=== PATIENT | female | born 1950 | race Caucasian/White ===

== ENCOUNTER 2016-10-22 13:18 | Inpatient (IN) | payer MEDICARE, OTHER ==
[~2016-10-22] VITALS: Ht 172.7 cm; Wt 127.6 kg
--- NOTE | ~2016-10-22 | HP ---
PATIENT'S NAME: CARMELO PERALTA [facility] AGE: 66 Y [address] ROOM: [place] [address] LOCATION: GPCU ADMIT DATE: 10/23/2016 History & Physical DISCHARGE DATE: FAMILY PHYSICIAN: Jennifer Reynoso MD ATTENDING PHYSICIAN: KACEY CANDELARIO DATE OF SERVICE: HISTORY OF PRESENT ILLNESS: This is a 66-year-old female, who was found to be in a new onset atrial fibrillation with rapid ventricular response while in the preoperative area. She is admitted as an outpatient today to the preoperative area for a planned right total hip replacement with Dr. Ruth due to hip pain. Due to the new diagnosis of AFib, the surgery was canceled and plan was to be evaluated by Cardiology. Due to this new diagnosis, [facility] was consulted to fully evaluate. She currently denies chest pain, shortness of breath, dyspnea on exertion, palpitations, presyncope, syncope, nausea, vomiting, or diarrhea. Her only complaint is of her right-sided hip pain, especially with movement. PAST MEDICAL HISTORY: 1. Hypertension. 2. Diabetes mellitus type 2. 3. Obesity. 4. Nocturnal hypoxemia. 5. COPD. 6. Mixed hyperlipidemia. 7. Lumbar spinal stenosis. 8. Obstructive sleep apnea. 9. Diverticulosis. 10. Depression and anxiety. 11. Stress urinary incontinence. PAST SURGICAL HISTORY: 1. Lumbar L5 as well as S1 diskectomy. 2. Right reverse total shoulder. 3. Left Achilles tendon tear. 4. Herniated disk repair at C6. FAMILY HISTORY: The patient's mother had a history of hypertension as well as arthritis and osteoporosis. Her father had a history of colon cancer, congestive heart failure, hypertension, and arthritis. She had one brother who at the age of 74 due to leukemia and another brother with a history of colon cancer. SOCIAL HISTORY: The patient is a current daily smoker. She smokes 1 pack per day and has done PATIENT'S NAME: CARMELO PERALTA [facility] AGE: 66 Y [address] ROOM: [place] [address] LOCATION: GPCU ADMIT DATE: 10/23/2016 History & Physical DISCHARGE DATE: FAMILY PHYSICIAN: Jennifer Reynoso MD ATTENDING PHYSICIAN: KACEY CANDELARIO for the past 48 years. She denies alcohol or illicit drug use. HOME MEDICATIONS: 1. Tylenol 1300 mg p.o. every 6 hours as needed for pain. 2. Xanax 0.25 mg p.o. twice daily as needed for anxiety. 3. Ascorbic acid 1000 mg p.o. daily. 4. Aspirin 81 mg p.o. 2 times a week on Sunday and Sunday. 5. Lipitor 20 mg p.o. daily in the evening. 6. Celexa 10 mg p.o. daily. 7. Clindamycin 900 mg p.o. one time as needed for dental prophylaxis. 8. Vitamin B12 1000 mcg p.o. daily. 9. Benadryl 50 mg p.o. daily in the evening as needed for sleep. 10. Colace 100 mg 1 to 2 capsules at bedtime as needed for constipation. 11. Pepcid 20 mg p.o. daily as needed for upset stomach. 12. [place] 5/325 mg p.o. 1 tablet every 6 hours as needed for pain. 13. Ibuprofen 800 mg p.o. 3 times daily. 14. Lisinopril/hydrochlorothiazide 10/12.5 mg p.o. daily. 15. Metformin 500 mg p.o. twice daily. 16. Toprol-XL 50 mg p.o. daily. 17. Multivitamin with beta-carotene 1 tablet p.o. daily. MEDICATION ALLERGIES: 1. Hydrocodone causing vomiting. 2. Homatropine causing vomiting. 3. Augmentin causing vomiting. 4. Dilaudid causing anger. 5. Nucynta. REVIEW OF SYSTEMS: A 12-point review of systems evaluated and negative except for those listed in the HPI. PHYSICAL EXAMINATION: VITAL SIGNS: Temperature 98.0, pulse 123, respirations 18, blood pressure 180/120, and O2 saturation 95% on 2 L nasal cannula. The patient weighs 127.6 kg. SKIN: [place], warm, and dry. EYES: Sclerae clear. No xanthelasmas. ENT: Oral mucosa is pink and moist. No jugular venous distention or carotid bruits. CHEST: Respirations are even and unlabored. Lungs are clear to auscultation. She does have dim breath sounds to bilateral lower lobes. HEART: Irregular rate and rhythm. Normal S1, S2. No murmurs, rubs, or gallops. ABDOMEN: Soft and nontender, but obese. PATIENT'S NAME: CARMELO PERALTA [facility] AGE: 66 Y [address] ROOM: [address] [place], [place] [address] [facility] ADMIT DATE: 10/23/2016 History & Physical DISCHARGE DATE: FAMILY PHYSICIAN: Jennifer Reynoos MD ATTENDING PHYSICIAN: KACEY CANDELARIO MUSCULOSKELETAL: Equal muscle strength to upper and lower extremities bilaterally against resistance. EXTREMITIES: Peripheral pulses palpable. No clubbing, cyanosis, or edema. PSYCHIATRIC: Alert and oriented. Mood and affect are appropriate. IMPRESSION AND PLAN: Per Dr. Covarrubias: 1. New onset atrial fibrillation with rapid ventricular response. 2. Right hip pain with planned outpatient right total hip replacement. 3. Hypertension. 4. Diabetes mellitus type 2. 5. Risk factors for coronary artery disease. We will admit her to the progressive care unit and start her on sotalol with daily EKGs every morning to monitor QTc. We will start her on a heparin drip for ACS protocol. She needs to have a coronary artery disease workup with an echocardiogram to fully evaluate ejection fraction as well as look for wall motion or valvular abnormalities, as well as a Lexiscan stress test to fully evaluate myocardial perfusion imaging. We will fully evaluate laboratory levels with cardiac enzymes, TSH, free T4, lipid panel, and A1c. Once again, we will start her on sotalol 80 mg p.o. every 12 hours with the first dose now. We will continue to monitor, evaluate, and treat as appropriate. Thank you for allowing [facility] to interact in the care of this patient. OMAYRA MILLER APRN FOR MD KAREN KAPOOR/veronica /[id number] D: 134 T: 341 HISTORY & PHYSICAL
--- NOTE | ~2016-10-22 | CON ---
PATIENT'S NAME: DEVIN PERALTAA Marlon [facility] AGE: 66 Y [address] ROOM: [address] [place], [place] [address] [facility]: [facility] ADMIT DATE: 10/23/2016 Consultation DISCHARGE DATE: FAMILY PHYSICIAN: Jennifer Reynoso MD ATTENDING PHYSICIAN: KACEY CANDELARIO REFERRING PHYSICIAN: Jared Covarrubias MD CHIEF COMPLAINT: Atrial fibrillation with RVR. HISTORY OF PRESENT ILLNESS: This is a pleasant 66-year-old female with a history of COPD, diabetes, hypertension, and anxiety, who presented to [facility] today to undergo an elective right total hip arthroplasty. She was being hooked up to the monitor to undergo surgery, and she was found to be in AFib with RVR, heart rate 120, blood pressure 180/120. The patient states that she has never had any previous cardiac arrhythmias, other than PVC's with stress. Overall, she has been feeling well. She was asymptomatic. She was hemodynamically stable. She denies any chest pain, shortness of breath, palpitations, lightheadedness, or dizziness. She states that she has had some fatigue, for which she takes vitamin B12 for. She also recently had bronchitis. She has not been able to sleep much secondary to her right hip pain. She denies any dyspnea on exertion or edema. She does have a history of COPD, and she wears 2 L of oxygen at night. She is able to ambulate with a walker secondary to her hip pain. Currently, blood pressure 143/98 with a heart rate of 110. Cardiology was consulted. They have already started a heparin drip, and she was given a dose of sotalol. She denies any history of any other cardiac problem. She denies any abdominal pain, nausea, vomiting, constipation, or diarrhea. She denies any obstructive sleep apnea. Denies numbness, tingling, or weakness other than her chronic left foot numbness after lumbar spine surgery. PAST MEDICAL HISTORY: 1. COPD. 2. Oxygen dependent 2 L when asleep. 3. Fatigue. 4. Diabetes mellitus type 2. 5. Hyperlipidemia. 6. Hypertension. 7. Spinal stenosis. 8. Anxiety/depression. 9. Insomnia. SOCIAL HISTORY: [facility]GE[facility] 66 Y [address] ROOM: [address] [place], [place] [address] [facility] ADMIT DATE: 10/23/2016 Consultation DISCHARGE DATE: FAMILY PHYSICIAN: Jennifer Reynoso MD ATTENDING PHYSICIAN: KACEY CANDELARIO The patient is . She is retired. She lives alone. She has 3 children. She smokes one pack per day for many years. FAMILY HISTORY: Mom with arthritis. Father with coronary artery disease, colon and prostate cancer, and arthritis. ALLERGIES: AUGMENTIN, NUCYNTA, HYDROCODONE. HOME MEDICATIONS: 1. Xanax 0.25 mg p.o. b.i.d. p.r.n. anxiety. 2. Lisinopril and hydrochlorothiazide 06/14.5 one tablet p.o. daily. 3. Toprol-XL 50 mg p.o. daily. 4. Metformin 500 mg p.o. b.i.d. 5. Ibuprofen 800 mg p.o. t.i.d. 6. Pepcid 20 mg p.o. as needed for upset stomach. 7. Lipitor 20 mg p.o. q.h.s. 8. Aspirin 81 mg p.o. 2 times a week. 9. Celexa 10 mg p.o. daily. 10. Multivitamin 1 tablet p.o. daily. 11. Benadryl 50 mg p.o. q.h.s. p.r.n. asleep. 12. Vitamin B12 of 1000 mcg p.o. q.a.m. 13. Oxygen 2 L when asleep. 14. Colace 100 to 200 mg p.o. q.h.s. p.r.n. constipation. 15. Ascorbic acid 1000 mg p.o. daily. 16. [place] 5/325 one tablet p.o. q.6 hours p.r.n. pain. 17. Tylenol Arthritis 1300 mg p.o. q.6 hours p.r.n. pain. 18. Cleocin 900 mg p.o. as directed. REVIEW OF SYSTEMS: A 10-point review of systems was performed and negative except for those noted above in the HPI. PHYSICAL EXAMINATION: GENERAL: This is a pleasant 66-year-old female, in no acute distress. VITAL SIGNS: Temperature 98.0, pulse 96, respirations 18, blood pressure 143/98, 97% on room air, 127.6 kg. HEENT: Pupils are equal, round, reactive to light. Normocephalic, atraumatic. Oral mucosa is moist without lesions. SKIN: Warm and dry without lesions or rashes. NECK: Supple. No thyromegaly. RESPIRATIONS: Clear throughout to auscultation bilaterally. No rales or crackles. No dyspnea. CARDIAC: Irregular rhythm and rate. No murmurs or extra sounds. No carotid PATIENT'S NAME: CARMELO PERALTA [facility] AGE: 66 Y [address] ROOM: [place] [address] [facility]: [facility] ADMIT DATE: 10/23/2016 Consultation DISCHARGE DATE: FAMILY PHYSICIAN: Jennifer Reynoso MD ATTENDING PHYSICIAN: KACEY CANDELARIO bruits noted. ABDOMEN: Bowel sounds are positive. Soft, nontender to palpation. No organomegaly noted. MUSCULOSKELETAL: Normal muscle tone. No joint deformity. EXTREMITIES: No calf tenderness. No edema. Pulses 2+ throughout. Cap refill less than 3 seconds. NEURO: Cranial nerves II through XII grossly intact. Awake, alert, and oriented. DIAGNOSTIC STUDIES: WBCs 9.7, hemoglobin 11.8, hematocrit 34.9, platelets 234. Hemoglobin A1c 7.2. Echo pending. Total cholesterol 179, triglycerides 170, HDL 57, LDL 88. Free T4 1.3. TSH 0.618. CK-MB 2.4. Troponin less than 0.040. Potassium 3.2. Mag 1.9. IMPRESSION AND PLAN: 1. New onset atrial fibrillation with RVR: We will consult Cardiology. Cardiology has already placed her on a heparin drip and started sotalol. She will obtain echo today and Lexiscan in the a.m. We will continue to monitor her on telemetry. The case was discussed with Dr. Covarrubias. We will go ahead and restart the patient on her home Toprol-XL 50 mg p.o. daily. She is currently asymptomatic. She is not cleared for further orthopedic surgery pending further cardiac workup. 2. Chronic respiratory failure secondary to chronic obstructive pulmonary disease: We will continue the patient's 2 L of oxygen when asleep. We will use Atrovent and Xopenex as needed for shortness of breath or wheezing. Currently, her chronic obstructive pulmonary disease is stable. 3. Diabetes mellitus type 2: We will go ahead and hold her metformin while she undergoes further evaluation. We will use sliding scale insulin for now. Hemoglobin A1c done today is 7.2. We will place her on a diabetic diet. 4. Essential hypertension: Blood pressure was elevated upon admit 180/120, now down to 143/98. Her lisinopril and hydrochlorothiazide dose was increased. We will continue to follow trend and make adjustments as needed. 5. Hyperlipidemia: We will continue the home Lipitor. 6. Anxiety: Continue home Xanax as needed. 7. Tobacco abuse: We will place the patient on a nicotine patch. 8. Obesity: BMI 42.1. We will encourage lifestyle modifications. 9. Hypokalemia: Potassium was found to be 3.2. We will go ahead and replace that with p.o. and continue to monitor. 10. Fatigue: The patient takes vitamin B12 for this. We will go ahead and continue that for now. 11. History of spinal stenosis: We will treat symptomatically as needed. PATIENT'S NAME: CARMELO PERALTA [facility] AGE: 66 Y [address] ROOM: [place] [address] [facility] ADMIT DATE: 10/23/2016 Consultation DISCHARGE DATE: FAMILY PHYSICIAN: Jennifer Reynoso MD ATTENDING PHYSICIAN: KACEY CANDELARIO 12. Depression: Continue home Celexa. 13. Constipation: Continue home Colace. 14. Right hip pain: The patient was originally scheduled for right total hip arthroplasty. That is currently on hold secondary to her new onset atrial fibrillation with RVR. She is not currently cleared for surgery. We will await further cardiac evaluation. 15. Deep venous thrombosis prophylaxis. Currently, she is on a heparin drip. Continue as per Cardiology. The patient was seen and examined by Dr. Candelario. Her care is being coordinated in consultation with Dr. Candelario. Thank you for allowing us to participate in the care of this patient as she has been hospitalized at [facility]. JANES BURR APRN FOR MD KASEY HURTADO/modl /[id number] CC: Jennifer Reynoso MD d: 10/24/16 0106 t: 10/24/16 1143, CONSULTATION REPORT
--- NOTE | ~2016-10-22 | ESTC ---
Cardiac Perfusion Imaging Demographics Patient Name KATHRYN Mason Gender Female Patient Number [id number] Race Visit Number [id number] Ethnicity Corporate ID Room Number G6324 Accession Number [id number] Height 68 inches Date of 1950 Weight 276 pounds A MD Edgardo Bernstein MD Interpreting Jose Meza Date of study 10/24/2016 Physician Supervising /MITCHEL JOSHUA Technologist Hussain Bill Ordering Physician Satish Pugh MD hospital technician Stress ECG Reading Joshua Lo APRN Nurse Desiree Cifuentes RN Physician Procedure Procedure Type: Nuclear Stress Test:Pharmacological, Lexiscan, Cardiolite Stress Test Procedure Start time: 10/24/2016 08:04 Conclusions Summary Perfusion Images: The overall quality of the study is good. Left ventricular cavity is noted to be normal on the stress and rest studies. There is no evidence of abnormal lung activity. The right ventricle is not visualized and cannot be assessed. Stress SPECT images and Rest SPECT images demonstrate homogenous tracer distribution throughout the myocardium except for a mild decrease uptake in the area involving the apical wall only on rest images consistent with soft tissue attenuation. Gated SPECT imaging reveals normal myocardial thickening and wall motion. The left ventricular ejection fraction was calculated to be >70%. Impression ECG portion of stress test is clinically negative for ischemia by diagnostic criteria. Myocardial perfusion imaging is normal. The small apical wall defect seen only on rest images is consistent with soft tissue attenuation. Overall left ventricular systolic function was normal without regional wall motion abnormalities. There are no previous studies for comparison . Stress Protocols Resting ECG Afib with RVR Pre-stress physical exam: Patient assessed by William WILHELM prior to testing. Predicted HR: 152 bpm HR response: Appropriate BP response: Appropriate Reason for termination:Infusion complete ECG Findings No ECG changes suggestive of ischemia. Arrhythmias No worsening rhythm abnormality. Symptoms Shortness of breath. Complications Procedure complication: None. Stress Interpretation Appropriate hemodynamic response to Lexiscan. No significant ST-T wave changes with Lexiscan. ECG portion is negative for ischemia by diagnostic criteria. Will correlate with nuclear images. Imaging Results Applied corrections - Motion correction applied High risk findings Summed scores - Summed stress score: 0 - Summed rest score: 3 - Summed difference score: -3 Stress ejection Ejection fraction:83 % EDV :88 ml ESV :15 ml Stroke volume :73 ml LV mass :120 gr Imaging Protocols Rest Stress Isotope:Tc99m Sestamibi IV Isotope: Tc99m Sestamibi IV Isotope dose:15 mCi Isotope dose:44.3 mCi Date:10/24/2016 06:50 Date:10/24/2016 09:00 Technique: SPECT Technique: Gated Supine SPECT Supine IV remains in place after procedure. Procedure Medications - Regadenoson (Lexiscan) 0.4 mg IV over 10-15 sec. I.V. . Medical History Admission Data Admission date: 10/23/2016 Admission Time: 06:13 Hospital Status: Inpatient. Signatures dtt: ALECIA OVIEDO dtd: 10/24/16 0804 Physician Self Edit
--- NOTE | ~2016-10-22 | DS ---
PATIENT'S NAME: CARMELO PERALTA [facility] AGE: 66 Y [address] ROOM: [address] [place], [place] [address] LOCATION: GPCU ADMIT DATE: 10/23/2016 Discharge Summary DISCHARGE DATE: 10/25/2016 FAMILY PHYSICIAN: Jennifer Reynoso MD ATTENDING PHYSICIAN: Ashish Pinto PRIMARY DIAGNOSES: 1. New paroxysmal atrial fibrillation. Chronic diseases include: 1. Diabetes type 2. 2. Nocturnal hypoxemia. 3. Dyslipidemia. 4. Essential hypertension. 5. Right hip degenerative joint disease. PRINCIPAL PROCEDURES: Done for the patient, none was indicated. LABORATORY DATA: Labs on admission; cardiac enzymes x2 sets was negative less than 0.040. WBC on admission 9.7, prior to discharge 10, H and H on admission was 11.8/34.9, prior to discharge it was 11.4/33.8, platelet was 236. Sodium 139, sodium prior to discharge was 134, creatinine was stable at 0,7, BUN was 17, was stable throughout the hospital stay, CO2 was 28, was stable throughout hospital stay. Magnesium was 1.9. Hemoglobin A1c was 7.2. Lipid panel: Total cholesterol 179, triglycerides 170, HDL 57, LDL 88, TSH 0.618, FT4 1.3. RADIOLOGY: Stress test apparently negative. Echocardiogram, EF 65% to 70% mild to moderate concentric left ventricular hypertrophy, diastolic function indeterminate due to the patient's arrhythmia. Stress test, the overall quality of the study is good, left ventricular activity is noted to be normal on the stress and rest studies. There is no evidence of abnormal lung activity. The right ventricle is not visualized and cannot be assessed. HOSPITAL COURSE: For history of present, illness please take a look at the H and P which was done by Dr. Pinto. The patient was admitted to Progressive Care Unit, given the new onset of atrial fibrillation. The patient was started on heparin and Cardiology was consulted. By the next day, she went for a stress test which was negative. The patient's heparin was stopped and the patient was started on Pradaxa and she was subsequently discharged home. During this stay, her chronic comorbidities were stable. MEDICATION ON DISCHARGE: Includes, 1. Hydrochlorothiazide 12.5 mg p.o. q.a.m. 2. Lisinopril 20 mg p.o. q.a.m. 3. Lipitor 20 mg p.o. at bedtime. PATIENT'S NAME: CARMELO PERALTA [facility] AGE: 66 Y [address] ROOM: [address] [place], [place] [address] [facility] ADMIT DATE: 10/23/2016 Discharge Summary DISCHARGE DATE: 10/25/2016 FAMILY PHYSICIAN: Jennifer Reynoso MD ATTENDING PHYSICIAN: Ashish Pinto 4. Celexa 10 mg p.o. q.a.m. 5. Clindamycin 100 mg p.o. one time p.r.n. 6. Dental prophylaxis. 7. Vitamin B12 1000 mcg p.o. q.a.m. 8. Pradaxa 150 mg p.o. twice daily, new medication. 9. Metoprolol 50 mg p.o. q.a.m. 10. Multivitamin one tablet p.o. daily. 11. Sotalol 80 mg p.o. twice daily. 12. Tylenol arthritis 1300 mg p.o. q.6 hours. 13. Xanax 0.25 mg p.o. twice daily p.r.n. 14. Benadryl 50 mg p.o. at bedtime. 15. Metformin. 16. Glucophage 500 mg p.o. twice daily. 17. Pepcid 20 mg p.o. daily p.r.n. 18. Oxygen tank. 19. Colace 100 to 200 mg p.o. at bedtime. 20. Vitamin C 1 g p.o. daily. 21. [place] 5 /325 tablet one tablet p.o. q.6 hours p.r.n. MD MESHA KELLY/veronica /[id number] d: 10/26/16 0336 t: 10/28/16 1422, DISCHARGE SUMMARY
--- NOTE | ~2016-10-22 | ECHO ---
Transthoracic Echocardiography Report (TTE) Demographics Patient Name CARMELO PERALTA Date of Study 10/23/2016 Patient Number [id number] Visit Number [id number] Date of 1950 Room Number [address]6324 Gender Female Number Age 66 year(s) Referring Faraz Ogden MD Product Delivery Specialist Bc Bullard RVT, Physician Satish Bernstein MD Physician Interpreting Efstratiou Cork Grinder Physician Nel Pugh MD Supervising Ordering Efstratiou MD/MLP Physician Nel Pugh MD Nurse Stress Remarketing Rep Conclusions Contractility Score Summary Normal Left Ventricular contractility was noted. Summary The estimated left ventricular ejection fraction is 65-70%. The left ventricle is normal in size . Mild to moderate concentric left ventricular hypertrophy. Diastolic function indeterminate due to patient's arrhythmia. Mild tricuspid regurgitation by color Doppler. There is mild pulmonary hypertension. The pulmonary pressure (RVSP) is 37 mmHg. Procedure Type of Study TTE procedure:2D Echocardiogram, M-Mode, Doppler , Color Doppler. Procedure Date Date: 10/23/2016 Start: 10:24 AM Study Location: Inpatient Portable Technical Quality: Adequate visualization Indications:New onset a-fib. Appropriate Use Criteria: 9 Patient Status: Routine HR: 114 bpm BP: 153/89 mmHg M-Mode/2D Measurements LV Diastolic Dimension: 4.45 cm LV Systolic Dimension: 3.06 cm LV Septum Diastolic: 1.27 cm LV PW Diastolic: 1.15 cm AO Root Dimension: 2.9 cm Cardiac Output: 7.3 l/min AV Cusp Separation: 1.7 cm RV Diastolic Dimension: 3.05 cm LA volume: 81 ml LVOT: 2 cm RV Base: 3.44 cm LVOT VTI: 20.4 cm RV Mid: 3.01 cm LV Stroke volume: 64.06 ml TAPSE: 3.05 cm TDI-S': 15.7 cm/s Doppler Measurements AV Peak Velocity: 0.95 m/s MV Peak E-Wave: 1.06 m/s AV Peak Gradient: 3.62 mmHg AV Mean Gradient: 3 mmHg MV P1/2t: 63 msec LVOT Peak Velocity: 1.05 m/s TR Velocity:2.93 m/s PV Peak Velocity: 0.94 m/s TR Gradient:34.34 mmHg PV Peak Gradient: 3.51 mmHg Estimated RAP:3 mmHg Estimated PASP: 37.34 mmHg Estimated RVSP: 37 mmHg E' Septal Velocity: 0.12 m/s E' Lateral Velocity: 0.14 m/s Findings Left Ventricle The left ventricle is normal in size . Mild to moderate concentric left ventricular hypertrophy. Diastolic function indeterminate due to patient's arrhythmia. Right Ventricle Mildly dilated right ventricle. Normal right ventricular systolic performance. Left Atrium The left atrium is m[ldly dilated. Right Atrium The right atrium is mildly dilated. IVC measures 1.50 cm with inspiratory collapse. Mitral Valve Mild mitral annular calcification. Trivial mitral regurgitation by color Doppler. Aortic Valve The aortic valve is mildly sclerotic. No significant aortic stenosis or insufficiency. Tricuspid Valve Normal tricuspid valve structure and function. Mild tricuspid regurgitation by color Doppler. There is mild pulmonary hypertension. The pulmonary pressure (RVSP) is 37 mmHg. Pulmonic Valve Normal pulmonic valve structure and function. Pericardial Effusion No evidence of pericardial effusion. Miscellaneous Visualized portions of the aortic root appear normal in size. Pleural Effusion No evidence of pleural effusion. Contractility Score LV regional wall motion:(0-Non visualized 1-Normal 2-Hypokinesis 3-Akinesis 4-Dyskinesis 5-Aneurysm) Signature dtt: Jared Covarrubias dtd: 10/23/16 [facility] Physician Self Edit
[~2016-10-22 13:18] MED LIST: ASCORBIC ACID500 MG PO; ASPIRIN EC81 MG PO; BENADRYL50 MG PO; CELEXA10 MG PO; CLEOCIN HCL300 MG PO; COLACE100 MG PO; GLUCOPHAGE500 MG PO; IBUPROFEN200 M1 PO; LIPITOR20 M1 PO; LISINOPRIL-HCT1 EACH PO; NORCO 7.5-3251 EACH PO; OXYGEN M-15 INH; PEPCID20 MG PO; THERA-VITE W/ B1 TAB PO; TOPROL XL 5050 MG PO; TYLENOL ARTHRI650 MG PO; ULTRAM50 MG PO; VITAMIN B-121000 MCG PO; XANAX0.25 MG PO
[2016-10-23 08:45] LABS: MAGNESIUM 1.9 mg/dL (1.3-2.6); POTASSIUM 3.2 mMol/L (3.7-5.1)
[2016-10-23 10:46] LABS: BASOPHIL # 0.1 K/uL (0.0-0.2); BASOPHIL % 0.8 %; EOSINOPHIL # 0.1 K/uL (0.0-0.5); EOSINOPHIL % 0.7 %; HEMATOCRIT 34.9 % (33.0-46.0); HEMOGLOBIN 11.8 g/dL (10.0-15.0); IMMATURE GRANULOCYTE # 0.1 K/uL (0.0-0.3); IMMATURE GRANULOCYTE % 0.5 %; LYMPHOCYTE # 2.4 K/uL (0.8-4.0); LYMPHOCYTE % 24.6 %; MCH 30.3 pg (27.0-34.0); MCHC 33.8 gm/dL (32.0-36.5); MCV 89.5 fl (83.0-98.0); MONOCYTE # 0.7 K/uL (0.0-1.0); MONOCYTE % 7.1 %; MPV 10.6 fl (9.4-12.4); NEUTROPHIL # (ANC) 6.4 K/uL (1.8-7.8); NEUTROPHIL % 66.3 %; NRBC % 0 /100WBC (0-0.00); PLATELET COUNT 235 K/uL (150-450); RDW-CV 13.7 % (11.9-14.6); WBC 9.7 K/uL (4.0-11.0)
[2016-10-23 10:52] LABS: PROTIME 10.5 SECONDS (9.6-11.1); PTT 26 SECONDS (25-32)
--- NOTE | 2016-10-23 13:58 | NUR ---
PT. ADMITED TODAY FOR AFIB. PT. WAS DOWNSTAIRS IN PRE-OP GETTING READY TO HAVE HIP SURGERY WITH DR. HERRERA, WHEN PT. WAS PUT ON THE HEART MONITOR, RHYTHM WAS AFIB, SO SURGERY WAS CANCELED. DR. SHELBY CONSULTED AND ADMITED PT. TO PCU. VS-153/89, 106, 18, 98.2, 96% ON ROOM AIR, WEARS 2L O2 @ NIGHTTIME. NO COMPLAINTS OF PAIN. GETS UP SBA WITH WHEELED WALKER IN ROOM. HX: DM TYPE 2, COPD, RIGHT HIP PAIN, SPINAL STENOSIS IN LUMBAR REGION. PT. WAS STARTED ON HEPARIN DRIP, HOME MEDS WERE RESTARTED.
[2016-10-23 17:50] LABS: BLOOD UREA NITROGEN 17 mg/dL (6-24); CREATININE 0.7 mg/dL (0.5-1.1); ESTIMATED GFR (MDRD EQUATION) > 60; SODIUM 139 mMol/L (135-145)
--- NOTE | 2016-10-23 17:53 | NUR ---
Significant Event: A/OX3, VSS ON ROOM AIR, SBP 140-150'S. NO COMPLAINTS OF PAIN THIS SHIFT. PT. STARTED ON HEPARIN DRIP @ 1000 UNITS/HR, NEXT PTTHP DUE AT 1820. GETS UP SBA WITH WHEELED WALKER. NPO AFTER MIDNIGHT FOR STRESS TEST IN AM. PLEASANT LADY. BILATERAL IV'S TO FOREARMS. Follow up: STRESS TEST IN AM.
[2016-10-24 04:02] LABS: ANION GAP 12.6 (10.0-19.0); BLOOD UREA NITROGEN 17 mg/dL (6-24); CALCIUM 8.4 mg/dL (8.5-10.5); CHLORIDE 101 mMol/L (96-110); CO2 28 mMol/L (22-32); CPK 43 IU/L (21-215); CREATININE 0.8 mg/dL (0.5-1.1); ESTIMATED GFR (MDRD EQUATION) > 60; MAGNESIUM 1.9 mg/dL (1.3-2.6); POTASSIUM 3.6 mMol/L (3.7-5.1); SODIUM 138 mMol/L (135-145)
--- NOTE | 2016-10-24 05:03 | NUR ---
A/O. HR 90-100s. SBP 1130-150s. ROOM AIR DURING THE DAY. 2L AT NIGHT. HEPARIN RUNNING AT 1400 UNIT/HR NEXT PTTHP AT 1010. STRESS TEST THIS AM. NPO SINCE MN. TYLENOLx1 FOR R) HIP PAIN. SBA WALKER TO BATHROOM.
--- NOTE | 2016-10-24 09:50 | NUR ---
0910 Introduced self/role to patient along with Adamaris, Social Work Student. She lives home alone. Rt hip was postponed and she had a stress test today. She potentially will be dismissed today. She stated she meet with Dr. Ruth last night and will look at doing her hip in 2 weeks. She has a shower bench and four wheeled walker already - doesn't want a standard walker. Her cousin will be staying with her following that surgery. She couldn't think of any additional DME or services that would be needed. Wrote my name up on her marker board.
--- NOTE | 2016-10-24 11:45 | NUR ---
[facility] note: 1030 Visited with patient briefly and provided the Diabetes management booklet and Diabetes Survival Skills checklist. Patient does have several questions related to diabetes/meal planning, consult placed for RD to see patient. Patient did have a stress test done this a.m., will continue to follow.
--- NOTE | 2016-10-24 17:55 | NUR ---
Significant Event:vss.ra.denied any pain this shift. here to see patient.stress test negative. was started on sotalol today, so has to stay in the hospital for monitoring.some c/o diarrhea this shift. unable to obtain a sample so far.5 beats vtack. called to benita klein aprn. started on potassium, and mag oxide daily.up with 1 assist+walker. Follow up:will continue to monitor per plan of care.
--- NOTE | 2016-10-25 05:14 | NUR ---
Significant Event:VSS.2L OXYGEN AT NIGHT.C/O PAIN TO R HIP, TYLENO GIVEN X2. CONVERTED TO NSR APPRX 0015. PT RUNNING HEPARIN GTT @1700U/HR PER PROTOCOL. Follow up:CONT WITH PLAN OF CARE
[2016-10-25 05:37] LABS: BASOPHIL # 0.1 K/uL (0.0-0.2); EOSINOPHIL # 0.1 K/uL (0.0-0.5); EOSINOPHIL % 1.4 %; HEMATOCRIT 33.8 % (33.0-46.0); HEMOGLOBIN 11.4 g/dL (10.0-15.0); IMMATURE GRANULOCYTE % 0.2 %; LYMPHOCYTE # 3.2 K/uL (0.8-4.0); LYMPHOCYTE % 31.8 %; MCH 30.2 pg (27.0-34.0); MCHC 33.7 gm/dL (32.0-36.5); MCV 89.7 fl (83.0-98.0); MONOCYTE # 0.8 K/uL (0.0-1.0); MONOCYTE % 7.7 %; MPV 10.1 fl (9.4-12.4); NEUTROPHIL # (ANC) 5.9 K/uL (1.8-7.8); NEUTROPHIL % 57.9 %; NRBC % 0 /100WBC (0-0.00); PLATELET COUNT 236 K/uL (150-450); RBC 3.77 M/uL (3.50-5.50); RDW-CV 13.7 % (11.9-14.6); WBC 10.2 K/uL (4.0-11.0)
[2016-10-25 05:52] LABS: ANION GAP 11.9 (10.0-19.0); BLOOD UREA NITROGEN 14 mg/dL (6-24); CALCIUM 8.5 mg/dL (8.5-10.5); CHLORIDE 100 mMol/L (96-110); CO2 26 mMol/L (22-32); CREATININE 0.7 mg/dL (0.5-1.1); ESTIMATED GFR (MDRD EQUATION) > 60; POTASSIUM 3.9 mMol/L (3.7-5.1); SODIUM 134 mMol/L (135-145)
[2016-10-25] MEDS ORDERED: HYDRODIURIL12.5 MG PO (10:36)
[2016-10-25] MEDS ORDERED: PRINIVIL (ZESTR20 MG PO (10:37)
[2016-10-25] MEDS ORDERED: PRADAXA150 MG PO (10:43)
[2016-10-25] MEDS ORDERED: BETAPACE (GENER80 MG PO (10:46)
== END 2016-10-25 12:55 | disposition disaster alternative care site (69) | DRG 554 ==
LOC: GLAB 13:18 → G3N 10-23 06:13 → GPCU 10-23 06:13 → GLAB 10-23 09:00 → EDSTATUS 10-23 09:00 → GPCU 10-23 09:22
PROVIDERS: Internal Medicine Cardiovascular Disease; Nurse Anesthetist, Certified Registered; ADMIT Internal Medicine
DX: M16.11 Unilateral primary osteoarthritis, right hip (principal); I47.2 Ventricular tachycardia; J96.10 Chronic respiratory failure, unspecified whether with hypoxia or hypercapnia; G47.34 Idiopathic sleep related nonobstructive alveolar hypoventilation; Z68.41 Body mass index [BMI] 40.0-44.9, adult; I48.0 Paroxysmal atrial fibrillation; E11.9 Type 2 diabetes mellitus without complications; E66.01 Morbid (severe) obesity due to excess calories; E78.5 Hyperlipidemia, unspecified; E87.6 Hypokalemia; F32.9 Major depressive disorder, single episode, unspecified; F41.9 Anxiety disorder, unspecified; I10 Essential (primary) hypertension; I25.10 Atherosclerotic heart disease of native coronary artery without angina pectoris; J44.9 Chronic obstructive pulmonary disease, unspecified; K59.00 Constipation, unspecified; E78.2 Mixed hyperlipidemia; G47.33 Obstructive sleep apnea (adult) (pediatric); Z53.09 Procedure and treatment not carried out because of other contraindication; G47.00 Insomnia, unspecified; Z91.19 Patient's noncompliance with other medical treatment and regimen; F17.210 Nicotine dependence, cigarettes, uncomplicated
CPT/HCPCS: A9500; J0280; J1644; J1885; J2001; J2250; J2785; J2795; J3475; J7030; J7120; J7612

== ENCOUNTER 2016-11-17 11:00 | Inpatient (IN) | payer MEDICARE, OTHER ==
[~2016-11-17] VITALS: Ht 172.7 cm; Wt 123.4 kg
--- NOTE | ~2016-11-17 | DS ---
[facility] 66 Y [address] ROOM: [place] [address] LOCATION: [facility] ADMIT DATE: 11/27/2016 Discharge Summary DISCHARGE DATE: 11/29/2016 FAMILY PHYSICIAN: Jennifer Reynoso MD ATTENDING PHYSICIAN: Gino Ruth PRIMARY DIAGNOSIS: Osteoarthritis, right hip. SECONDARY DIAGNOSES: 1. Atrial fibrillation. 2. Chronic obstructive pulmonary disease. 3. Diabetes mellitus type 2. 4. Nicotine dependence. 5. Spinal stenosis. 6. Obesity with BMI equaling 38. 7. Hypertension. 8. Depression/anxiety. 9. Obstructive sleep apnea. 10. History of diverticulosis. 11. Stress urinary incontinence. PROCEDURE PERFORMED: Right total hip arthroplasty. HISTORY: The patient is a 66-year-old, who presents with advanced right hip degenerative joint disease and associated severely compromised activities of daily living. The patient has decided to proceed with total right hip arthroplasty after having been thoroughly counseled regarding the risks, benefits, limitations and alternatives. Please refer to the outpatient clinic notes and admission history and physical for this patient. HOSPITAL COURSE: The patient underwent a total right hip arthroplasty on 11/27/2016 without complications. Spinal anesthesia plus subcutaneous and periarticular local anesthesia was utilized. The patient received 24 hours of perioperative prophylactic antibiotics and remained hemodynamically stable, neurovascularly intact throughout the entire hospital course. The postoperative prophylactic deep venous thrombosis prophylaxis consisted of Xarelto, early mobilization and pneumatic compression devices. Daily physical therapy for gait training, transfer training, and reinforcement of hip dislocation precautions were received. The patient progressed well in physical therapy. On the date of discharge, 11/29/2016, the incision at the hip was healing well and showed no signs of infection. DISPOSITION: Home. DISCHARGE ACTIVITY: The patient is to bear weight as tolerated with strict [facility]: [facility] AGE: 66 Y [address] ROOM: [address] [address] LOCATION: [facility] ADMIT DATE: 11/27/2016 Discharge Summary DISCHARGE DATE: 11/29/2016 FAMILY PHYSICIAN: Jennifer Reynoso MD ATTENDING PHYSICIAN: Gino Ruth hip dislocation precautions as instructed. There are to be no dressing changes. Dr. Ruth is to be notified immediately if there is any increased pain, fevers, chills, erythema or drainage. DISCHARGE MEDICATIONS: 1. Xarelto 20 mg one tab p.o. daily for 30 days for postoperative DVT prophylaxis. 2. [place] 7.5/325 mg 1-2 tabs p.o. every 4 hours p.r.n. for pain. 3. Diazepam 5 mg 1/2 to 1 tab p.o. every 6 hours p.r.n. for muscle spasms. 4. She was then instructed to continue all her other pre-admission medications as instructed by her internal medicine doctor. FOLLOWUP: Followup appointment is to be with DENZEL Orozco on 12/04/2016 for her initial postoperative evaluation. RASHAWN DUVAL PA-C FOR MD MAME PEREYRA/alol /[id number] d: 12/05/16 0543 t: 12/11/16 1315, DISCHARGE SUMMARY
--- NOTE | ~2016-11-17 | HP ---
PATIENT'S NAME: CARMELO PERALTA [facility] AGE: 66 Y [address] ROOM: [id number] [place], [place] [address] LOCATION: [facility] ADMIT DATE: 11/27/2016 History & Physical DISCHARGE DATE: 11/29/2016 FAMILY PHYSICIAN: Jennifer Reynoso MD ATTENDING PHYSICIAN: Gino Ruth DATE OF SERVICE: ADDENDUM: Dr. Ruth evaluated the patient in the preoperative holding area. The patient reemphasized that they were suffering severely and consistently and wished to proceed with the joint replacement. The remainder of the history is unchanged compared to the patient's most recent clinic note, which Dr. Ruth has signed on the chart on the date of surgery. Dr. Ruth examined the patient in the preoperative holding area. The patient was alert and oriented. There were no active skin lesions over the intended site of incision. IMPRESSION: Right hip degenerative joint disease. PLAN: The patient and Dr. Ruth elected to proceed with the intended procedure as scheduled. All the patient's questions and concerns were answered to her satisfaction in the preoperative holding area. Dr. Ruth signed the intended site of surgery in the preoperative holding area. RASHAWN DUVAL PA-C FOR MD MAME PEREYRA/veronica /[id number] D: [id number] T: [id number] HISTORY & PHYSICAL
--- NOTE | ~2016-11-17 | CON ---
PATIENT'S NAME: CARMELO PERLATA [facility] AGE: 66 Y [address] ROOM: [place] [address] LOCATION: [facility] ADMIT DATE: 11/27/2016 Consultation DISCHARGE DATE: FAMILY PHYSICIAN: Jennifer Reynoso MD ATTENDING PHYSICIAN: EDWIN HERRERA REFERRING PHYSICIAN: SUKI BARBOSA MD CHIEF COMPLAINT: Right hip arthroplasty, elective. SUBJECTIVE: No pain. No chest pain. No headache. Feeling fine after the surgery. OBJECTIVE: VITAL SIGNS: 131/67, 79,16, 97.8. GENERAL: No acute distress. Alert and oriented x3. HEENT: Head: Atraumatic, normocephalic. Eyes: Nonicteric. No pallor. Oropharynx: Moist mucous membranes. CARDIOVASCULAR: S1, S2. No murmurs, gallops, or rubs. LUNGS: Clear to auscultation bilaterally. Abdomen: Soft, nontender, nondistended. Bowel sounds present. EXTREMITIES: No clubbing, cyanosis, or edema. PAST MEDICAL HISTORY: Hypertension; type 2 diabetes; obesity; nocturnal hypoxemia, on 2 L of oxygen; COPD; mixed hyperlipidemia; lumbar spinal stenosis; diverticulosis; depression; anxiety; stress urinary incontinence. LABORATORY DATA: All lab work is reviewed and within normal limit. ASSESSMENT AND PLAN: 1. Type 2 diabetes. Not on any insulin at home. Resume metformin and sliding scale insulin. 2. Hypertension. Continue metoprolol XL. 3. Atrial fibrillation, paroxysmal. Currently in sinus. Resume dabigatran tomorrow morning. Continue rate control. 4. Nocturnal hypoxemia, currently on 2 L of oxygen at night. 5. Hypertension. Continue lisinopril and hydrochlorothiazide. 6. Deep venous thrombosis prophylaxis on 11/28/2016. 7. Right hip arthroplasty. Pain management per Orthopedics. Thank you for having us in taking care of this patient. PATIENT'S NAME: CARMELO PERALTA [facility] AGE: 66 Y [address] ROOM: [place] [address] LOCATION: [facility] ADMIT DATE: 11/27/2016 Consultation DISCHARGE DATE: FAMILY PHYSICIAN: Jennifer Reynoso MD ATTENDING PHYSICIAN: EDWIN HERRERA MD MAK/veronica /[id number] d: 11/28/16 0152 t: 11/28/16 1215, CONSULTATION REPORT
--- NOTE | ~2016-11-17 | OR ---
[facility] 66 Y [address] ROOM: [place] [address] LOCATION: [facility] ADMIT DATE: 11/27/2016 OR/Procedure Report DISCHARGE DATE: FAMILY PHYSICIAN: Jennifer Reynoso MD ATTENDING PHYSICIAN: EDWIN HERRERA SURGEON: Edwin Herrera MD REFINERY OPERATOR [employer]: 1. Carlos Alberto Peter PA-C. 2. Navneet Damian CST/STEEL DIE ENGRAVER. DATE OF PROCEDURE: 11/27/2016 PRE-OP DIAGNOSIS: 1. Primary osteoarthritis, right hip. 2. Obesity (5 feet and 8 inches tall and 123 kg). POST-OP DIAGNOSIS: 1. Primary osteoarthritis, right hip. 2. Obesity (5 feet and 8 inches tall and 123 kg). OPERATION: Right total hip arthroplasty. ANESTHESIA: Spinal anesthesia plus subcutaneous and periarticular local anesthesia (ropivacaine with epinephrine and Toradol). ESTIMATED BLOOD LOSS: Approximately 275 mL. DRAIN: None. SPECIMEN: None. COMPLICATIONS: None. IMPLANTS: 1. Ama Trident Tritanium size 52 mm hemispherical uncemented acetabular shell with 1 dome hole cover and no screws. 2. Ama X3 neutral acetabular polyethylene liner with 36 mm inner diameter. 3. Ama Accolade II size 6 standard offset uncemented femoral component. 4. A 36 mm diameter Biolox femoral head with -5 mm neck length. INDICATION FOR SURGERY: The patient is a 66-year-old female, who presents with advanced right hip primary osteoarthritis and associated severely compromised activities of daily living. The patient has decided to proceed with hip replacement after having been thoroughly counseled regarding the associated risks, benefits, and limitations. We have specifically reviewed the risks and implications of infection, deep venous thrombosis, pulmonary [facility]: 66 Y [address] ROOM: [place] [address] LOCATION: [facility] ADMIT DATE: 11/27/2016 OR/Procedure Report DISCHARGE DATE: FAMILY PHYSICIAN: Jennifer Reynoso MD ATTENDING PHYSICIAN: EDWIN HERRERA embolism, mortality, neurovascular complications, blood transfusion (and associated potential for disease transmission or transfusion reaction), stiffness, instability, leg length discrepancy, mechanical deterioration of the components (due to wear and to loosening), and the potential need for revision. DESCRIPTION OF PROCEDURE: The patient was positioned in a lateral decubitus position with the right side up after administration of anesthesia and prophylactic antibiotics. An axillary roll was placed and the non-operative leg was well padded. The pelvis was locked perpendicularly to the floor on a pegboard. The right hip and entire operative extremity were prepped and draped with vigilant sterile technique. The patient's name as well as the intended operative side and procedure were confirmed with a verbal time-out involving myself, the circulating nurse, the scrub nurse, and the anesthesiologist. The right hip was approached through a standard posterolateral incision. The fascia rachell and the gluteus elina fascia were sharply divided in line with the overlying skin incision. The sciatic nerve was identified and was vigilantly protected throughout the entire case. The short external rotators and posterior capsule were divided from their respective femoral insertions and tagged with four #1 Ethibond sutures for later repair. The hip was posteriorly dislocated with combined flexion, adduction, and internal rotation. The femoral neck osteotomy was performed with an oscillating saw. Inspection of the femoral head demonstrated full-thickness loss of articular cartilage involving over 50% of the weightbearing surface. There was extensive surrounding partial-thickness articular cartilage loss. There was no femoral head collapse. There was a small osteophyte at the periphery of the femoral head. Photographic documentation of the femoral head was obtained. Circumferential acetabular exposure was obtained. Inspection of acetabulum demonstrated full-thickness loss of articular cartilage involving over 50% of the acetabular dome. There was no dysplasia. There was a large effusion consisting of benign-appearing translucent synovial fluid. Remnants of the acetabular labrum were sharply thoroughly excised. The acetabulum was sequentially progressively reamed up to 51 mm with hemispherical power reamers. The final acetabular shell was impacted into position in 20 degrees of anteversion and 45 degrees of inclination. An excellent press-fit was obtained. No supplemental dome screw fixation was necessary. A neutral trial liner was inserted. Attention was next focused upon femoral preparation. The femoral canal initiator was utilized. No reaming was performed (except with the canal PATIENT'S NAME: CARMELO PERALTA [facility] AGE: 66 Y [address] ROOM: [id number] [place], [place] [address] LOCATION: [facility] ADMIT DATE: 11/27/2016 OR/Procedure Report DISCHARGE DATE: FAMILY PHYSICIAN: Jennifer Reynoso MD ATTENDING PHYSICIAN: EDWIN HERRERA). The femoral canal was subsequently sequentially progressively broached up to a size 6. The size 6 broach obtained excellent axial and rotational stability. Trial reductions with the above specified construct yielded acceptable stability and acceptable reproduction of leg length and offset. All trial components were removed. The final acetabular liner was inserted with excellent circumferential visualization of its locking mechanism to assure adequate deployment. The final femoral component was impacted into position. The femoral component achieved excellent axial and rotational stability. The trunnion of the femoral component was vigilantly protected prior to placement of the femoral head. The trunnion of the femoral component was thoroughly cleaned and dried prior to placement of the femoral head. The incision was thoroughly irrigated with bacteriostatic pulsatile saline lavage multiple times throughout the case. The entire joint space was thoroughly inspected and thoroughly irrigated to assure that there was no residual debris of any sort. A final reduction was then performed. After final reduction, the hip could be firmly externally rotated in full extension and zero degrees of abduction without anterior subluxation. In neutral rotation and zero degrees of abduction, the hip could be firmly flexed to 120 degrees without instability. At 90 degrees of flexion and zero degrees abduction, the hip could be internally rotated to 70 degrees before there was any hint of posterior subluxation. The posterior capsule and short external rotators were repaired through two drill holes in the posterior aspect of the greater trochanter. The fascia rachell and gluteus elina fascia were closed with multiple simple and [id number] interrupted # 1 Ethibond and #1 Vicryl sutures. Subcutaneous tissues were thoroughly re-irrigated with bacteriostatic pulsatile saline lavage. Subcutaneous tissues were re-approximated with simple buried interrupted #0 Vicryl sutures. The skin was closed with superficial buried interrupted 2-0 Vicryl sutures followed by a running subcuticular 3-0 Monocryl suture, followed by Octylseal, followed by Steri- Strips with benzoin, followed by an occlusive Mepilex dressing. There were no intra-operative complications. It should be noted that the physician's assistant offset press operator played an active, integral role throughout this entire operation. By providing expert retraction, they greatly facilitated and expedited safe and effective exposure of the proximal femur and acetabulum for preparation and implantation of the components. They were also actively involved in the patient's positioning, prepping and PATIENT'S NAME: CARMELO PERALTA [facility] AGE: 66 Y [address] ROOM: [place] [address] LOCATION: [facility] ADMIT DATE: 11/27/2016 OR/Procedure Report DISCHARGE DATE: FAMILY PHYSICIAN: Jennifer Reynoso MD ATTENDING PHYSICIAN: EDWIN HERRERA, as well as wound closure. EDWIN HERRERA MD JMW/modl /[id number] d: 11/28/16 0130 t: 12/02/16 1006, OPERATIVE SUMMARY
[~2016-11-17 11:00] MED LIST changes: +BETAPACE (GENER80 MG PO; +HYDRODIURIL12.5 MG PO; +PRADAXA150 MG PO; +PRINIVIL (ZESTR20 MG PO
--- NOTE | 2016-11-27 17:48 | NUR ---
Significant Event:Received from PACU at 1720. First 1/2hr at 1805. Mepilex dressing to rt hip. Full sensation. No void Follow up:
--- NOTE | 2016-11-28 04:54 | NUR ---
Patient alert and oriented x3, very pleasant and cooperative, csm with in normal limits, dressing to hip clean dry and intact, ice in place to hip, transfering and ambulating well one assist with walker and gaitbelt, is on 2L of 02 at night at home, has rested well and pain has been under control
--- NOTE | 2016-11-28 11:05 | NUR ---
Introduced self and CM role to patient this morning. Pt requested to speak with us about discharge plan. Pt had a previous stay in which her surgery was postponed due to heart complications. She stated she needs to speak with a project construction assistant manager in [place] and was curious as to if it was in our role to call and make that appt for her and send her information from her last visit here. I stated that she should call and make that appt, and she was understanding she was just not sure if it was in our role to do that. We discussed getting assess to her medical records when she would need them to go to that appt when she is recovered; and about the consent form she would likely sign. Pt lives alone in her home in [place] and plans to return there upon discharge. Her cousin whom used to work at a [employer] is planning to stay with her to assist her. She states she has a walker, shower bench, and feels like she has the necessary DME to return home safely. She was asking about the best place to obtain a new crystallography teacher because she doesn't like the one she has now, but OT was there when she stated this and was able to talk to her about it. No other needs or concerns at this time. Plan to discharge to her home in [place] tomorrow or 11/30. CM Vertical Borer .
--- NOTE | 2016-11-28 16:04 | NUR ---
Significant Event: pt alert and oriented. up in the room with 1 assist. changed to norco for pain last at 1330 will update you with next dose. voids well. no bm today. ice to hip. home tomorrow. accuchecks ac and hs. wears 2 lpm/nc at hs. Follow up:
--- NOTE | 2016-11-29 04:22 | NUR ---
Patient alert and oriented, very pleasant and cooperative, csm with in normal limits, dressing clean dry and intact, ambulating well to the bathroom, ice in place to hip, pain has been under control, patient has rested well tonight, plans to go home today
[2016-11-29] MEDS ORDERED: MIRALAX17 GM PO (14:48)
[2016-11-29] MEDS ORDERED: VALIUM5 MG PO (14:49)
[2016-11-29] MEDS ORDERED: XARELTO20 MG PO (14:50)
--- NOTE | 2016-11-29 16:06 | NUR ---
pt given discharge instructions and voices understanding. medications reviewed and dressing reviewed. pt voices understanding. escorted to the front door by decorating kiln operator. family friend at pt's side.
== END 2016-11-29 16:00 | disposition disaster alternative care site (69) | DRG 470 ==
LOC: G3N 11-27 09:12
PROVIDERS: ADMIT Orthopaedic Surgery
PROC: 0SR904A Replacement of Right Hip Joint with Ceramic on Polyethylene Synthetic Substitute, Uncemented, Open Approach (ICD-10-PCS; principal; 2016-11-27)
DX: M16.11 Unilateral primary osteoarthritis, right hip (principal); Z68.41 Body mass index [BMI] 40.0-44.9, adult; J44.9 Chronic obstructive pulmonary disease, unspecified; I48.0 Paroxysmal atrial fibrillation; E66.9 Obesity, unspecified; I10 Essential (primary) hypertension; F17.210 Nicotine dependence, cigarettes, uncomplicated; E11.9 Type 2 diabetes mellitus without complications; E78.2 Mixed hyperlipidemia; N39.3 Stress incontinence (female) (male); G47.33 Obstructive sleep apnea (adult) (pediatric); M48.06 Spinal stenosis, lumbar region; F32.9 Major depressive disorder, single episode, unspecified; F41.9 Anxiety disorder, unspecified; H91.90 Unspecified hearing loss, unspecified ear; Z79.82 Long term (current) use of aspirin; Z79.84 Long term (current) use of oral hypoglycemic drugs; Z79.01 Long term (current) use of anticoagulants
CPT/HCPCS: C1776; J1885; J2001; J2405; J2795; J7030; J7120